=== PATIENT | male | born 1965 | race Caucasian/White ===

== ENCOUNTER → 2016-12-18 | Outpatient (CLI) | payer BC, OTHER ==
[~2016-12-18] MED LIST: GLUC1CAP9 PO; MENS MULTIVITAMIN PO; [UNRECOGNIZED DRUG - REMARK] PO
--- NOTE | 2016-12-19 08:42 | DI ---
Indication: ITS.REASON: M54.5 LBP PROCEDURE: MRI LUMBAR SPINE W/O CONTRAST: Encounter: Initial Comparison: None Technique: Multiplanar multisequence MR imaging of the lumbar spine was performed without contrast. Findings: Alignment of the lumbar spine is within normal limits. No acute fracture identified. Conus medullaris terminates normally at L1. The paraspinal soft tissues are unremarkable. Segmental analysis: L1-L2: Normal L2-L3: Normal L3-L4: Mild degenerative facet disease and slight disk height loss with minimal bulging. No central canal stenosis. No significant neural foraminal stenosis. L4-L5: Disk bulging with degenerative facet disease contributing to mild central canal stenosis and lateral recess narrowing. Mild left neural foraminal stenosis. No significant right foraminal narrowing. L5-S1: Central disk protrusion asymmetric to the right with narrowing of the right lateral recess. No central canal stenosis. There is moderate right neural foraminal stenosis with impingement on the exiting right L5 nerve root by disk material. Mild left neural foraminal stenosis as well. Impression: Mild degenerative disk and facet disease as above. .
== END ==
LOC: IMA.MDS 16:58
PROVIDERS: ATTEND Family Medicine
DX: M48.06 Spinal stenosis, lumbar region (principal); M47.896 Other spondylosis, lumbar region; M51.27 Other intervertebral disc displacement, lumbosacral region; M51.36 Other intervertebral disc degeneration, lumbar region